=== PATIENT | male | born 1955 | race Asian ===

== ENCOUNTER 2019-05-22 14:58 | Inpatient (IN) | payer OTHER ==
[~2019-05-22] VITALS: Ht 165.1 cm; Wt 57.6 kg
--- NOTE | 2019-05-22 15:04 | NUR ---
PT AMB TO ER BED6 W/O ASST
[2019-05-22 15:05] VITALS: BP 125/68
--- NOTE | 2019-05-22 15:30 | NUR ---
PT C/O CONSTANT DIFUSED ABDOMINAL PAIN AND VOMITING FOR ONE WEEK. PT VOMITED 3 TIMES SINCE THIS MORNING. DENIES NAUSEA AND DIARRHEA. SKIN IS PINK/WARM/DRY; AAOX4 WITH EVEN AND STEADY GAIT; HR EVEN WITH TACHYCARDIA; PT DENIES ANY FEVER, CP, SOB, OR COUGH AT THIS TIME; PATIENT STATES PAIN OF 6/10 AT THIS TIME; VSS; PATIENT POSITIONED FOR COMFORT; HOB ELEVATED; BEDRAILS UP X1; BED DOWN. ER MD MADE AWARE OF PT STATUS.
[2019-05-22] MEDS ORDERED: PANTOPRAZOLE 40 MG INJ VIAL IVP ONE (15:45)
[2019-05-22] MEDS ORDERED: ASPIRIN 81 MG TAB.CHEW PO ONE (15:45)
[2019-05-22] MEDS ORDERED: ONDANSETRON 4 MG/2 ML VIAL IVP ONE ×2 (15:45→17:00)
[2019-05-22] MEDS: NACL 0.9% 1,000 ML IV SCH ×3 (16:08→20:20)
[2019-05-22 16:09] LABS: MEAN CORPUSCULAR VOLUME 87.1 fL (80-94)
--- NOTE | 2019-05-22 16:11 | NUR ---
biochemistry technologist at bedside.
[2019-05-22 16:15] LABS: BASOPHILS # (AUTO) 0.1 K/uL (0.00-0.22); BASOPHILS % (AUTO) 0.3 % (0.0-2.0); HEMATOCRIT 43.7 % (36-52); HEMOGLOBIN 14.8 g/dL (12.0-18.0); LYMPHOCYTES # (AUTO) 0.3 K/uL (2.0-11.5); LYMPHOCYTES % (AUTO) 0.9 % (20.5-51.1); MEAN CORPUSCULAR HEMOGLOBIN 30 pg (27-31); MEAN CORPUSCULAR HGB CONC 34 g/dL (33-37); MONOCYTES # (AUTO) 0.7 K/uL (0.8-1.0); MONOCYTES % (AUTO) 2.5 % (1.7-9.3); NEUTROPHILS # (AUTO) 28.3 K/uL (1.8-7.7); NEUTROPHILS % (AUTO) 96.3 % (42.2-75.2); PLATELET COUNT (AUTO) 531 K/uL (140-450); RED BLOOD CELL COUNT(AUTO) 5.02 MIL/uL (4.20-6.10); RED CELL DISTRIBUTION WIDTH 13.2 % (11.6-13.7)
--- NOTE | 2019-05-22 16:16 | NUR ---
BLOOD SENT TO LAB, IVP MEDS GIVEN-NADR AT THIS TIME, XRAY DONE
[2019-05-22 16:26] LABS: WHITE BLOOD COUNT (AUTO) 29.4 K/uL (4.8-10.8)
[2019-05-22 16:28] LABS: ANION GAP 14.5 (8-16); CARBON DIOXIDE 28.3 mmol/L (21-32); CREATININE 1.3 mg/dL (0.7-1.3); POTASSIUM 3.8 mmol/L (3.5-5.1)
[2019-05-22 16:32] LABS: PROTHROMBIN TIME 10.8 secs (10.8-13.4)
[2019-05-22 16:34] LABS: ALBUMIN 2.7 g/dL (3.4-5.0); TOTAL BILIRUBIN 5.4 mg/dL (0.0-1.0)
[2019-05-22] MEDS ORDERED: metroNIDAZOLE 500 MG/NS PREMIX 100 ML IV ONE (17:00)
[2019-05-22] MEDS ORDERED: INSULIN REGULAR, HUMAN 100 UNIT/ML VIAL IVP ONE (17:05)
--- NOTE | 2019-05-22 17:11 | NUR ---
Patient taken to CT scan via gurney by [facility].
[2019-05-22] MEDS: PIPERACILLIN/TAZOBACTAM 3.375 GM in DEXTROSE 5% 50 ML IV ONE ×2 (17:53→19:35)
[2019-05-22] MEDS ORDERED: PIPERACILLIN/TAZOBACTAM 3.375 GM VIAL IV ONE ×2 (17:58→22:52)
[2019-05-22 18:13] LABS: APPEARANCE,URINE CLOUDY (CLEAR); BILIRUBIN,URINE 3+ (NEGATIVE); BLOOD, URINE NEGATIVE (NEGATIVE); COLOR,URINE ORANGE (YELLOW); LEUKOCYTE ESTERASE ,URINE NEGATIVE (NEGATIVE); NITRITE, URINE NEGATIVE (NEGATIVE); UGLUCOSE 2+ (NEGATIVE)
[2019-05-22] MEDS ORDERED: DEXTROSE 50% 50 ML SYR IVP PRN (18:40)
[2019-05-22] MEDS ORDERED: MORPHINE SULFATE 2 MG/ML SYR IVP PRN (18:40)
[2019-05-22] MEDS ORDERED: ONDANSETRON 4 MG/2 ML VIAL IVP PRN (18:40)
[2019-05-22] MEDS ORDERED: ACETAMINOPHEN 650 MG SUPP RC PRN (18:40)
[2019-05-22] MEDS ORDERED: MORPHINE SULFATE 4 MG/ML SYR IVP PRN (18:40)
[2019-05-22] MEDS ORDERED: LORazepam 2 MG/ML VIAL IVP PRN (18:40)
--- NOTE | 2019-05-22 19:00 | NUR ---
PT IS RESTING IN BED WITH EYES OPEN.
[2019-05-22] MEDS ORDERED: LEVOFLOXACIN 500 MG/D5W PREMIX 100 ML IV SCH (20:00)
--- NOTE | 2019-05-22 20:15 | NUR ---
Patient will be admitted to care of SEPSIS. Admited to TELEMETRY. Will go to room 110B. Belongings list completed. Report to JOSEPH HANKINS.
[2019-05-22 20:20] VITALS: BP 122/62
--- NOTE | 2019-05-22 20:20 | NUR ---
RECEIVED PT FROM ER NURSE, MIKE. PT CAME IN [facility] AND AMBULATE TO [facility] BED. NO S/S OF SOB NOTED IN ROOM AIR. SKIN INTACT, WARM AND DRY TO TOUCH. IV SITE ON RFA, 20G, PATENT, INTACT, AND ASYMPTOMATIC. C/C VOMITING, DX CHOLANGITIS, SEPSIS, DM, HYPERTENSION. HX RENAL STONE. BOARD UPDATED, ALL SAFETY MEASUREMENT IN PLACE. ORIENT PT TO ROOM. BED IN LOW POSITION, CALL LIGHT WITHIN REACH.
[2019-05-22] MEDS: BLOOD GLUCOSE MONITORING 1 DEV DEV FS SCH (21:00)
--- NOTE | 2019-05-22 21:15 | NUR ---
GIVEN LEVAQUIN MD ORDERED, PT TOLERATED WELL. WILL CONTINUE TO MONITOR.
[2019-05-22] MEDS: PIPERACILLIN/TAZOBACTAM 3.375 GM in DEXTROSE 5% 50 ML IV SCH (22:56)
--- NOTE | 2019-05-22 22:56 | NUR ---
TALKED TO DR. KASPER, REPORTED PT'S CONDITION, DR. Higginbotham/Belén ALL ANTIBIOTIC EXCEPT ZOSYN. GIVEN ZOSYN AFTER LEVAQUIN DONE. BS, [address] CARRILLO TO GIVE INSULIN ON NPO STATUS. GIVEN INSULIN SLIDING SCALE. Addendum: 05/23/19 at 0203 by Unique Verde RN BS, 230.
[2019-05-22] MEDS: INSULIN LISPRO SLIDING SCALE 100 UNITS/ML VIAL SUBQ PRN (23:01)
[2019-05-23] MEDS ORDERED: metroNIDAZOLE 500 MG/NS PREMIX 100 ML IV SCH
--- NOTE | 2019-05-23 01:29 | NUR ---
PT SLEEPING IN BED COMFORTABLY. NO S/S OF SOB NOTED. WILL CONTINUE TO MONITOR.
[2019-05-23] MEDS: NACL 0.9% 1,000 ML IV SCH ×4 (02:38→21:20)
--- NOTE | 2019-05-23 03:30 | NUR ---
PT SLEEPING IN BED COMFORTABLY. RESPIRATION EVEN AND UNLABORED. BED IN LOW POSITION, CALL LIGHT WITHIN REACH.
[2019-05-23 04:00] VITALS: BP 102/57
[2019-05-23] MEDS: PIPERACILLIN/TAZOBACTAM 3.375 GM in DEXTROSE 5% 50 ML IV SCH ×3 (05:18→22:30)
[2019-05-23] MEDS ORDERED: PIPERACILLIN/TAZOBACTAM 3.375 GM VIAL IV ONE (05:19)
[2019-05-23] MEDS: BLOOD GLUCOSE MONITORING 1 DEV DEV FS SCH ×4 (05:39→20:11)
[2019-05-23] MEDS: INSULIN LISPRO SLIDING SCALE 100 UNITS/ML VIAL SUBQ PRN ×2 (05:45→18:25)
--- NOTE | 2019-05-23 05:45 | NUR ---
BS CHECKED, 205. GIVEN INSULIN SLIDING SCALE. PT TOLERATED WELL. WILL CONTINUE TO MONITOR.
--- NOTE | 2019-05-23 06:31 | NUR ---
PT SLEEPING IN BED COMFORTABLY. NO S/S OF SOB NOTED. BED IN LOW POSITION.
[2019-05-23 07:47] LABS: HEMATOCRIT 37.5 % (36-52); HEMOGLOBIN 12.5 g/dL (12.0-18.0); MEAN CORPUSCULAR HEMOGLOBIN 30 pg (27-31); MEAN CORPUSCULAR HGB CONC 33 g/dL (33-37); MEAN CORPUSCULAR VOLUME 88.9 fL (80-94); PLATELET COUNT (AUTO) 369 K/uL (140-450); RED BLOOD CELL COUNT(AUTO) 4.21 MIL/uL (4.20-6.10); RED CELL DISTRIBUTION WIDTH 13.2 % (11.6-13.7); WHITE BLOOD COUNT (AUTO) 21.3 K/uL (4.8-10.8)
--- NOTE | 2019-05-23 07:53 | NUR ---
RECEIVED BED SIDE REPORT FROM BARLEY STEEPER RN. PT A/O X4, MALAYSIAN SPEAKING, SKIN INTACT, ON RA IN NO RESP DISTRESS. RIGHT AC 20G RUNNING NS AT 125. ORDERED NG TUBE INSERTION. VS STABLE. DENIES PAIN. WILL CONTINUE TO MONITOR.
[2019-05-23 07:56] LABS: ALBUMIN 1.9 g/dL (3.4-5.0); ANION GAP 14.2 (8-16); CARBON DIOXIDE 23.1 mmol/L (21-32); CREATININE 1.6 mg/dL (0.7-1.3); POTASSIUM 3.3 mmol/L (3.5-5.1); TOTAL BILIRUBIN 4.8 mg/dL (0.0-1.0)
--- NOTE | 2019-05-23 08:07 | NUR ---
PATIENT HAS BEEN SCREENED AND CATEGORIZED HIGH NUTRITION RISK. PATIENT WILL BE SEEN WITHIN 1-2 DAYS OF ADMISSION. 05/23/19-05/24/[address]
[2019-05-23 08:27] LABS: LYMPHOCYTES % (MANUAL) 2 % (20-46); MONOCYTES % (MANUAL) 3 % (5-12)
--- NOTE | 2019-05-23 09:51 | NUR ---
INSERTED NG TUBE. ORDERED CXR FOR NG TUBE PLACEMENT PER 'S ORDER.
[2019-05-23 10:43] VITALS: BP 104/58
--- NOTE | 2019-05-23 12:11 | NUR ---
SUGAR 189. PT NPO. NG TUBE IN PLACE AND CONFIRMED BY CXR. PT SLEEPING. IN NO DISTRESS, WILL CONTINUE TO MONITOR.
--- NOTE | 2019-05-23 13:05 | NUR ---
RECEIVED REPORT FROM DAY SHIFT RN MITRA. TAKING OVER PATIENT CARE. PATIENT IS IN STABLE CONDITION, VITALS ARE STABLE, SLEEPING WITH NO SIGNS OF DISTRESS AND VISIBLE CHEST RISE. SAFETY PRECAUTIONS IN PLACE, WILL CONTINUE TO MONITOR.
[2019-05-23] MEDS ORDERED: METOCLOPRAMIDE 10 MG/2 ML INJ VIAL IVP SCH (13:30)
--- NOTE | 2019-05-23 13:33 | NUR ---
05/23/19 RD INITIAL ASSESSMENT COMPLETED PLEASE REFER TO NUTRITION ASSESSMENT UNDER CARE ACTIVITY FOR ESTIMATED NUTRITIONAL NEEDS. 1. CONTINUE NPO MEDICALLY NECESSARY 2. IF/WHEN PATIENT IS MEDICALLY STABLE CONSID[facility] [address] TO FOLLOW-UP 2-3 DAYS, HIGH RISK [address]IO[address]
--- NOTE | 2019-05-23 14:31 | NUR ---
PATIENT OFF FLOOR TO OR FOR ERCP. NG TUBE REMOVED, TIP INTACT, PATIENT TOLERATED WELL. CONSENT SIGNED. TELE BOX REMOVED, WILL INFORM ASPHALT SMOOTHER.
[2019-05-23] MEDS ORDERED: PROPOFOL 200 MG/20 ML VIAL IV ONE (14:46)
[2019-05-23] MEDS ORDERED: ONDANSETRON 4 MG/2 ML VIAL IVP PRN (15:10)
[2019-05-23] MEDS ORDERED: HYDROmorphone 1 MG/ML AMP IVP PRN (15:10)
[2019-05-23 16:00] VITALS: BP 112/66
--- NOTE | 2019-05-23 16:05 | NUR ---
PATIENT RETURNED TO UNIT, RECEIVED REPORT FROM POLYETHYLENE COMBINER, VITALS STABLE, SLEEPY BUT AROUSES EASILY TO VOICE. NO SIGNS OF DISTRESS ON RA, EQUAL UNLABORED CHEST RISE. SPO2 98%. SAFETY PRECAUTIONS IN PLACE, WILL CONTINUE TO MONITOR.
--- NOTE | 2019-05-23 16:45 | NUR ---
Post-discharge pcp appointment with Dr. East for 05/29/19 at 13:30. Address: [facility] [address] [place] [address]. Delmy Jimenez, [facility] [phone]
[2019-05-23] MEDS: KCL 20 MEQ/WATER INJ PREMIX 100 ML IV SCH ×2 (18:14→20:09)
--- NOTE | 2019-05-23 18:25 | NUR ---
ADMINISTER 20MEQ KCL RIDER , BAG 1 OF 2, ALSO ADMINISTERED 2 UNITS HUMALOG FOR 156 GLUCOSE, PATIENT IS NOT LONGER NPO. PATIENT EATING DINNER AND HAS NO C/O PAIN, OR DISTRESS. SAFETY PRECAUTIONS IN PLACE AND CALL LIGHT IN REACH.
--- NOTE | 2019-05-23 19:30 | NUR ---
GAVE BEDSIDE REPORT TO EMERGENCY ROOM SPECIALIST RNLC. ENDORSING PATIENT IN STABLE CONDITION.
--- NOTE | 2019-05-23 19:30 | NUR ---
RECIEVED PT. AAOX4 , NOT COMPLAIN OF PAIN AT THIS TIME , IV SITE INTACT , PLAN OF CARE DISCUSSED AND VERBALIZE UNDERSTANDING , CALL LIGHT WITHIN REACH , URINAL WITHIN REACH , BED IN LOW POSITION , SIDERAILS UPX2 , WILL CONTINUE TO MONITOR , AFEBRILE.
[2019-05-23 20:00] VITALS: BP 110/60
--- NOTE | 2019-05-23 22:00 | NUR ---
MADE ROUNDS . PT SLEEPING , CALL LIGHT WITHIN REACH
[2019-05-23 23:53] VITALS: BP 110/62
--- NOTE | 2019-05-24 | NUR ---
MADE ROUNDS , V/S WNL , NO COMPLAIN MADE AT THIS TIME , CALL LIGHT WITHIN REACH .
--- NOTE | 2019-05-24 02:00 | NUR ---
MADE ROUNDS , PT. SLEEPING.
--- NOTE | 2019-05-24 04:00 | NUR ---
MADE ROUNDS , RESP. EVEN AND UNLABORED , NO COMPLAIN MADE AT THIS TIME , CALL LIGHT WITHIN REACH.
[2019-05-24 04:34] VITALS: BP 112/63
[2019-05-24] MEDS: NACL 0.9% 1,000 ML IV SCH ×2 (05:14→14:08)
[2019-05-24] MEDS: PIPERACILLIN/TAZOBACTAM 3.375 GM in DEXTROSE 5% 50 ML IV SCH ×3 (05:15→21:16)
--- NOTE | 2019-05-24 06:00 | NUR ---
MADE ROUNDS . PT. SLEEPING.CALL LIGHT WITHIN REACH.
[2019-05-24] MEDS: BLOOD GLUCOSE MONITORING 1 DEV DEV FS SCH ×4 (07:07→21:16)
[2019-05-24] MEDS: INSULIN LISPRO SLIDING SCALE 100 UNITS/ML VIAL SUBQ PRN ×4 (07:13→21:19)
--- NOTE | 2019-05-24 07:25 | NUR ---
ENDORSED PT. TO AM SHIFT , WITH STABLE CONDITION.
--- NOTE | 2019-05-24 07:35 | NUR ---
RECEIVED BEDSIDE REPORT FROM SCALLOP BINDER RNLC. PATIENT IS AWAKE AND RESTING IN BED, NO SIGNS OF DISTRESS ON RA. SPEECH IS CLEAR, BED IS LOW, CALL LIGHT IS IN REACH. IV FLUID IS INFUSING WELL TO RIGHT AC 20 GAUGE CATHETER. CO C/O PAIN OR NAUSEA. WILL CONTINUE TO MONITOR.
[2019-05-24 08:00] VITALS: BP 118/73
--- NOTE | 2019-05-24 09:30 | NUR ---
PATIENT RESTING IN BED, FAMILY AT BEDSIDE. PATIENT TOLERATING DIABETIC DIET WELL. NO DISTRESS NOTED ON RA. BED LOW, CALL LIGHT IN REACH.
[2019-05-24 12:00] VITALS: BP 106/56
--- NOTE | 2019-05-24 12:02 | NUR ---
ADMINISTERED SCHEDULED MEDICATIONS. PATIENT TOLERATED WELL. VOIDING ADEQUATE URINE. IV RUNNING WELL TO RIGHT AC 20 GAUGE. PATIENT AMBULATING WELL TO AND FROM BATHROOM WITHOUT ASSISTANCE. NO C/O PAIN OR ABDOMINAL DISCOMFORT. BED LOW, CALL LIGHT IN REACH. WILL CONTINUE TO MONITOR.
--- NOTE | 2019-05-24 14:13 | NUR ---
ADMINISTERED IV FLUIDS. RATE 80 ML/HR. TOLERATED WELL. BED IN LOWEST POSITION. CALL LIGHT IS IN REACH. WILL CONTINUE TO MONITOR.
[2019-05-24 16:00] VITALS: BP 102/62
--- NOTE | 2019-05-24 16:30 | NUR ---
VITALS STABLE, GLUCOSE 213, WILL COVER WITH HUMALOG. BED LOW, CALL LIGHT IN REACH.
--- NOTE | 2019-05-24 16:45 | NUR ---
GAVE 4 UNITS FOR GLUCOSE OF 213, PATIENT TOLERATED WELL. NO C/O PAIN AT THIS TIME. SAFETY PRECAUTIONS IN PLACE.
--- NOTE | 2019-05-24 19:05 | NUR ---
GAVE REPORT TO CRIMINAL LEGAL ASSISTANT NURSE. ENDORSING PATIENT IN STABLE CONDITION.
--- NOTE | 2019-05-24 19:06 | NUR ---
RECEIVED BEDSIDE REPORT FROM DAY SHIFT NURSE, PT STABLE, NO DISTRESS NOTED, IV TO RAC 22G PATENT INTACT, INFUSING WELL, PT ON ROOM AIR, NO SOB NOTED, PT STATED HAVING NO PAIN AT THIS MOMENT, INITIAL ASSESSMENT DONE, ALL SAFETY PRECAUTION MET, CALL LIGHT WITHIN REACH, WILL CONTINUE TO MONITOR.
[2019-05-24 20:00] VITALS: BP 95/52
--- NOTE | 2019-05-24 21:19 | NUR ---
DUE MEDICATION ADMINISTERED, PT TOLERATED WELL, NO DISTRESS NOTED, CALL LIGHT WITHIN REACH, WILL CONTINUE TO MONITOR.
[2019-05-25] VITALS: BP 101/53
--- NOTE | 2019-05-25 00:01 | NUR ---
PT SLEEPING, CALL LIGHT WITHIN REACH, WILL CONTINUE TO MONITOR.
--- NOTE | 2019-05-25 02:00 | NUR ---
CHECKED ON PT, PT SLEEPING, V/S TAKEN, WNL, CALL LIGHT WITHIN REACH, WILL CONTINUE TO MONITOR.
[2019-05-25 04:00] VITALS: BP 118/65
[2019-05-25] MEDS: PIPERACILLIN/TAZOBACTAM 3.375 GM in DEXTROSE 5% 50 ML IV SCH ×3 (05:20→20:15)
--- NOTE | 2019-05-25 05:20 | NUR ---
DUE MEDICATION ADMINISTERED, PT TOLERATED WELL, NO DISTRESS NOTED, CALL LIGHT WITHIN REACH, WILL CONTINUE TO MONITOR.
[2019-05-25] MEDS: BLOOD GLUCOSE MONITORING 1 DEV DEV FS SCH ×4 (05:24→20:15)
[2019-05-25] MEDS: INSULIN LISPRO SLIDING SCALE 100 UNITS/ML VIAL SUBQ PRN ×4 (06:35→20:53)
--- NOTE | 2019-05-25 07:01 | NUR ---
PT RESTING, NO DISTRESS NOTED, ALL NEED MET, CALL LIGHT WITHIN REACH, WILL ENDORSED TO DAY SHIFT NURSE.
--- NOTE | 2019-05-25 07:15 | NUR ---
Received report from pm nurse Kandice. Pt resting in bed, awake, verbally responsive, FLACC 0, respirations even & nonlabored. Bowel sounds active on all quads. Right AC IV intact with ongoing NS @ 80ml/hr. Call light within reach.
[2019-05-25 08:00] VITALS: BP 119/70
--- NOTE | 2019-05-25 08:04 | NUR ---
RECEIVED REPORT FROM JOSEPH VALENTINE FOR CHANGE IN PATIENT SCHEDULING. PATIENT IS ON ROOM AIR, SITTING UP IN BED EATING BREAKFAST. NO S/S OF RESPIRATORY DISTRESS. A & OX4. IV TO RIGHT AC 18G WITH NS @80ML/HR. SKIN IS INTACT. WILL CONTINUE TO MONITOR.
[2019-05-25 08:08] LABS: BASOPHILS % (AUTO) 0.5 % (0.0-2.0); EOSINOPHILS # (AUTO) 0.1 K/uL (0-0.4); EOSINOPHILS % (AUTO) 1.5 % (0.0-4.0); HEMATOCRIT 37.9 % (36-52); HEMOGLOBIN 12.8 g/dL (12.0-18.0); LYMPHOCYTES # (AUTO) 0.7 K/uL (2.0-11.5); MEAN CORPUSCULAR HEMOGLOBIN 30 pg (27-31); MEAN CORPUSCULAR HGB CONC 34 g/dL (33-37); MEAN CORPUSCULAR VOLUME 88.5 fL (80-94); MONOCYTES # (AUTO) 0.5 K/uL (0.8-1.0); MONOCYTES % (AUTO) 6.1 % (1.7-9.3); NEUTROPHILS # (AUTO) 6.3 K/uL (1.8-7.7); NEUTROPHILS % (AUTO) 82.9 % (42.2-75.2); PLATELET COUNT (AUTO) 357 K/uL (140-450); RED BLOOD CELL COUNT(AUTO) 4.29 MIL/uL (4.20-6.10); RED CELL DISTRIBUTION WIDTH 13.7 % (11.6-13.7); WHITE BLOOD COUNT (AUTO) 7.5 K/uL (4.8-10.8)
[2019-05-25 08:15] LABS: ANION GAP 13.6 (8-16); CARBON DIOXIDE 21.9 mmol/L (21-32); CREATININE 1.1 mg/dL (0.7-1.3); POTASSIUM 3.5 mmol/L (3.5-5.1)
--- NOTE | 2019-05-25 09:42 | NUR ---
PATIENT IS RESTING QUIETLY IN BED. NO S/S OF RESPIRATORY DISTRESS. VITAL SIGNS WNL. WILL CONTINUE TO ASSESS AND MONITOR.
[2019-05-25 11:33] LABS: ALBUMIN 1.9 g/dL (3.4-5.0); BILIRUBIN,DIRECT 0.8 mg/dL (0.0-0.3); TOTAL BILIRUBIN 1.4 mg/dL (0.0-1.0)
[2019-05-25] MEDS: NACL 0.9% 1,000 ML IV SCH ×2 (11:38→20:17)
[2019-05-25 12:00] VITALS: BP 123/72
--- NOTE | 2019-05-25 12:15 | NUR ---
PATIENT IS SITTING UP IN BED EATING LUNCH. ADMINISTERED INSULIN 2 UNITS PRIOR FOR BLOOD SUGAR OF 175. PATIENT IS ON ROOM AIR. NO S/S OF RESPIRATORY DISTRESS.
[2019-05-25 16:00] VITALS: BP 125/67
--- NOTE | 2019-05-25 19:15 | NUR ---
ENDORSED PATIENT TO CORE PLACER NURSE. UPON ENDORSEMENT IV LINE TO RIGHT AC WAS NOT FLUSHING. REMOVED RIGHT AC IV CATHETER, TIP INTACT. INSERTED NEW IV TO LEFT HAND 22G. CATHETER LINE INTACT AND FLUSHING. ENDORSED THIS INFORMATION TO CORE PLACER NURSE. PATIENT IS AWAKE AND IN BED, LATEST VITAL SIGNS WNL
--- NOTE | 2019-05-25 19:16 | NUR ---
Received endorsement from AM shift RN; patient A/Ox4, able to make needs known, Kittitian speaking, ambulatory. Introduced self, updated board. No SOB or distress noted, on room air. IV site on right antecubital, 18 gauge, saline locked. Skin intact. Bed in the lowest position, call light within reach. Initial assessment done. Will continue to monitor.
[2019-05-25 20:00] VITALS: BP 122/70
--- NOTE | 2019-05-25 20:00 | NUR ---
IV site infiltrated; previous shift RN inserted new IV site on left hand, 22 gauge, flushed and intact.
--- NOTE | 2019-05-25 20:50 | NUR ---
Vitals taken, no distress noted.
--- NOTE | 2019-05-25 21:50 | NUR ---
Due meds given, tolerated well.
--- NOTE | 2019-05-25 23:45 | NUR ---
Vitals taken; patient asleep, visible chest rise and fall noted.
[2019-05-26] VITALS: BP 124/65
--- NOTE | 2019-05-26 01:50 | NUR ---
Rounds done; patient sleeping comfortably, visible chest rise and fall noted.
[2019-05-26 04:00] VITALS: BP 135/59
[2019-05-26] MEDS: PIPERACILLIN/TAZOBACTAM 3.375 GM in DEXTROSE 5% 50 ML IV SCH (04:02)
--- NOTE | 2019-05-26 04:40 | NUR ---
Vitals taken; patient asleep, visible chest rise and fall noted.
[2019-05-26] MEDS: BLOOD GLUCOSE MONITORING 1 DEV DEV FS SCH ×2 (06:16→11:30)
[2019-05-26] MEDS: INSULIN LISPRO SLIDING SCALE 100 UNITS/ML VIAL SUBQ PRN (06:18)
--- NOTE | 2019-05-26 06:40 | NUR ---
Patient vitals stable, due meds given. Will endorse patient to AM shift RN for continuity of care.
--- NOTE | 2019-05-26 07:10 | NUR ---
RECEIVED REPORT FROM LUNCHROOM WORKER NURSE. PT IS AAOX4, LYING IN BED. RESPIRATIONS EVEN AND UNLABORED ON RA. BS ACTIVE THROUGHOUT. SKIN IS INTACT, WARM TO TOUCH. IV ON LT HAND 22 GA RUNNING IVF PER ORDER. PT HAS NO C/O PAIN AT THIS TIME. REVIEWED POC WITH PT, PT VERBALIZES UNDERSTANDING.
[2019-05-26 08:00] VITALS: BP 120/65
--- NOTE | 2019-05-26 10:50 | NUR ---
PT REQUESTED FOR IVF TO BE STOPPED. EXPLAINED RISKS AND BENEFITS, BUT PT INSISTS ON STOPPING FLUIDS. EXPLAINED TO PT THAT HE WILL BE DISCHARGED TODAY. PT VERBALIZES UNDERSTANDING.
[2019-05-26] MEDS ORDERED: LEVO750T2 PO (11:41)
[2019-05-26] MEDS ORDERED: METR250T2 PO (11:41)
[2019-05-26] MEDS ORDERED: PNEUMOCOCCAL VACCINE 23 MCG/0.5 ML VIAL IMVAC SCH (11:55)
--- NOTE | 2019-05-26 12:00 | NUR ---
PT STATED HE HAS NO KNOWN ALLERGIES. ADMINISTERED PNEUMOVAX TO RT DELTOID, PT TOLERATED WELL. NO SIGNS OF DISTRESS.
--- NOTE | 2019-05-26 12:15 | NUR ---
PT HAS BEEN DISCHARGED. ALL PAPERWORK SIGNED, QUESTIONS ANSWERED. ALL BELONGINGS AND PRESCRIPTIONS IN PT POSSESSION. IV DISCONTINUED WITH CANNULA INTACT. WRISTBANDS AND TELE MONITOR REMOVED. PT REFUSED WHEELCHAIR, ASSISTED OUT OF UNIT WITH STEADY GAIT. PT IS IN STABLE CONDITION.
== END 2019-05-26 12:15 | disposition home or self-care (01) | DRG 720 ==
LOC: MED 14:58 → MTU 18:50
PROVIDERS: ADMIT Internal Medicine Pulmonary Disease; ATTEND Internal Medicine Pulmonary Disease
PROC: 0FPB8DZ Removal of Intraluminal Device from Hepatobiliary Duct, Via Natural or Artificial Opening Endoscopic (ICD-10-PCS; 2019-05-23)
PROC: BF101ZZ Fluoroscopy of Bile Ducts using Low Osmolar Contrast (ICD-10-PCS; 2019-05-23)
PROC: 0FC98ZZ Extirpation of Matter from Common Bile Duct, Via Natural or Artificial Opening Endoscopic (ICD-10-PCS; principal; 2019-05-23 14:30)
PROC: 3E0234Z Introduction of Serum, Toxoid and Vaccine into Muscle, Percutaneous Approach (ICD-10-PCS; 2019-05-26)
DX: A41.51 Sepsis due to Escherichia coli [E. coli] (principal); E44.1 Mild protein-calorie malnutrition; K80.31 Calculus of bile duct with cholangitis, unspecified, with obstruction; N39.0 Urinary tract infection, site not specified; E87.6 Hypokalemia; I10 Essential (primary) hypertension; E11.9 Type 2 diabetes mellitus without complications; B96.1 Klebsiella pneumoniae [K. pneumoniae] as the cause of diseases classified elsewhere; Z87.442 Personal history of urinary calculi; Z90.49 Acquired absence of other specified parts of digestive tract; Z23 Encounter for immunization
CPT/HCPCS: 36415; 71045; 80048; 80053; 80076; 81003; 82948; 83605; 83690; 83880; 84484; 85025; 85610; 85730; 87040; 87081; 87086; 87186; 90732; 93005; 96365; 96375; 96376; 99285; C1769; C1773; C9113; J1815; J1956; J2405; J2543; J2704; J2765; J3480; J3490; J7030; J7060; Q0092